=== PATIENT | female | born 2000 | race Hispanic/Latino ===

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

== ENCOUNTER 2020-04-04 20:17 | Emergency (ER) | payer MEDICAID ==
[2020-04-04 21:27] VITALS: BP 123/69
[2020-04-04 21:46] LABS: Basophils % (Auto) 0.4 % (0.0-1.8); Eosinophils % (Auto) 0.7 % (0.0-4.3); Hematocrit 30.7 % (30.3-42.9); Lymphocytes # (Auto) 1.3 K/mm3 (1.2-5.4); Lymphocytes % (Auto) 20.7 % (13.4-35.0); Mean Corpuscular HGB Conc 32 % (30-34); Mean Corpuscular Volume 77 fl (79-97); Monocytes # (Auto) 0.4 K/mm3 (0.0-0.8); Monocytes % (Auto) 6.6 % (0.0-7.3); Platelet Count 240 K/mm3 (140-440); Red Blood Count 3.98 M/mm3 (3.65-5.03); Red Cell Distribution Width 18.6 % (13.2-15.2)
[2020-04-04 22:17] LABS: Alanine Aminotransferase 12 units/L (7-56); Albumin 3.9 g/dL (3.9-5); Blood Urea Nitrogen 9 mg/dL (7-17); Calcium 9.3 mg/dL (8.4-10.2); Hemolysis Index 8
[2020-04-04 22:28] LABS: BUN/Creatinine Ratio 18
[2020-04-04 22:43] LABS: Bacteria,Urine 1+ /HPF (Negative); Bilirubin,Urine NEG (Negative); Blood,Urine NEG (Negative); Color,Urine Yellow (Yellow); Mucus,Urine 3+ /HPF; Protein,Urine <15 mg/dL mg/dL (Negative); Urobilinogen,Urine < 2.0 mg/dL (<2.0)
--- NOTE | 2020-04-04 23:51 | Ultrasound Report ---
ULTRASOUND OBSTETRIC INDICATION / CLINICAL INFORMATION: vaginal bleeding. TECHNIQUE: Transabdominal and Transvaginal. Duplex ultrasound with spectral technique of both ovaries COMPARISON: None available. FINDINGS: GESTATIONAL SAC: Well-defined oval shape and intrauterine in location. YOLK SAC: No significant abnormality. EMBRYO/FETUS: No significant abnormality. - [place]-Rump Length = 4.7 cm = 11 weeks, 3 day(s). - Heart Rate, beats per minute (if present) = 180 ADNEXA: No significant abnormality. Normal color Doppler and spectral waveforms both ovaries FREE FLUID: None. ADDITIONAL FINDINGS: None. IMPRESSION: 1. Single, living intrauterine with estimated sonographic age of 11 weeks, 3 day(s). Signer Name: Michael Cobb MD Signed: 04/04/2020 11:45 PM Workstation Name: [id number]
--- NOTE | 2020-04-04 23:51 | Ultrasound Report ---
ULTRASOUND OBSTETRIC INDICATION / CLINICAL INFORMATION: vaginal bleeding. TECHNIQUE: Transabdominal and Transvaginal. Duplex ultrasound with spectral technique of both ovaries COMPARISON: None available. FINDINGS: GESTATIONAL SAC: Well-defined oval shape and intrauterine in location. YOLK SAC: No significant abnormality. EMBRYO/FETUS: No significant abnormality. - [place]-Rump Length = 4.7 cm = 11 weeks, 3 day(s). - Heart Rate, beats per minute (if present) = 180 ADNEXA: No significant abnormality. Normal color Doppler and spectral waveforms both ovaries FREE FLUID: None. ADDITIONAL FINDINGS: None. IMPRESSION: 1. Single, living intrauterine with estimated sonographic age of 11 weeks, 3 day(s). Signer Name: Michael Cobb MD Signed: 04/04/2020 11:45 PM Workstation Name: [id number]
--- NOTE | 2020-04-05 00:01 | Emergency Department Report ---
ED HPI - General Chief complaint: Vaginal Bleeding Stated complaint: 11 WEEKS PREG ABD PAIN CRAMPING Time Seen by Provider: 04/04/20 22:40 Source: patient Mode of arrival: Ambulatory Limitations: No Limitations - History of Present Illness Initial comments: 19-year-old female patient presents with complaints of vaginal bleeding and lower abdominal cramping in x today. She reports she is 10 weeks and currently following with Dr. Gómez, BASE MANAGER. She states she has had some burning urination for the past 3 days with mild urinary frequency. She denies any vaginal discharge, dyspareunia, hematuria, flank pain, fever/chills/sweats, nausea/vomiting/diarrhea, or constipation. Patient states history of recurrent urinary tract infections during and states her symptoms seem similar to her past UTIs. She denies any current abdominal pain. - Related Data Previous Rx's Medication Instructions Recorded Last Taken Type Ferrous Sulfate 325 mg PO BID #30 tablet. 08/28/17 Unknown Rx HYDROcodone/APAP 5-325 [Rembert 1 each PO Q6HR PRN #20 tablet 08/28/17 Unknown Rx 5/325] Ibuprofen [Motrin] 600 mg PO Q8H PRN #30 tablet 08/28/17 Unknown Rx Amoxicillin/Potassium Clav 1 each PO BID 5 Days #10 tablet 04/04/20 Unknown Rx [Augmentin 875-125 Tablet] Allergies Allergy/AdvReac Type Severity Reaction Status Date / Time No Known Allergies Allergy Unverified 08/26/17 13:42 ED Review of Systems ROS: Stated complaint: 11 WEEKS PREG ABD PAIN CRAMPING Other details as noted in HPI Constitutional: denies: chills, diaphoresis, fever, malaise, weakness Respiratory: denies: shortness of breath Cardiovascular: denies: chest pain Gastrointestinal: abdominal pain. denies: nausea, vomiting, diarrhea, constipation Genitourinary: dysuria, frequency. denies: hematuria, discharge, dyspareunia Skin: denies: rash, lesions Hematological/Lymphatic: denies: swollen glands ED Past Medical Hx - Past Medical History Previous Medical History?: Yes Hx Hypertension: No Hx Congestive Heart Failure: No Hx Diabetes: No Hx Deep Vein Thrombosis: No Hx Renal Disease: No Hx Sickle Cell Disease: No Hx Seizures: No Hx Asthma: No Hx COPD: No Hx HIV: No Additional medical history: Anemia - Surgical History Past Surgical History?: Yes Additional Surgical History: Tonsilectomy - Social History Smoking Status: Current Every Day Smoker Substance Use Type: None - Medications Home Medications: Home Medications Medication Instructions Recorded Confirmed Last Taken Type Ferrous Sulfate 325 mg PO BID #30 tablet. 08/28/17 Unknown Rx HYDROcodone/APAP 5-325 [Rembert 1 each PO Q6HR PRN #20 tablet 08/28/17 Unknown Rx 5/325] Ibuprofen [Motrin] 600 mg PO Q8H PRN #30 tablet 08/28/17 Unknown Rx Amoxicillin/Potassium Clav 1 each PO BID 5 Days #10 tablet 04/04/20 Unknown Rx [Augmentin 875-125 Tablet] ED Physical Exam - General Limitations: No Limitations General appearance: alert, in no apparent distress - Head Head exam: Present: atraumatic, normocephalic - Eye Eye exam: Present: normal appearance. Absent: scleral icterus - ENT ENT exam: Present: mucous membranes moist - Neck Neck exam: Present: normal inspection - Respiratory Respiratory exam: Present: normal lung sounds bilaterally. Absent: respiratory distress - Cardiovascular Cardiovascular Exam: Present: regular rate, normal rhythm. Absent: systolic murmur, diastolic murmur, rubs, gallop - GI/Abdominal GI/Abdominal exam: Present: soft, normal bowel sounds. Absent: distended, tenderness, rebound, rigid - Back Exam Back exam: Absent: CVA tenderness (R), CVA tenderness (L) - Neurological Exam Neurological exam: Present: alert, oriented X3 - Psychiatric Psychiatric exam: Present: normal affect, normal mood - Skin Skin exam: Present: warm, dry, intact, normal color. Absent: rash, cyanosis, diaphoretic ED Course Vital Signs 04/04/20 21:26 Temperature 98.1 F Pulse Rate 85 Respiratory 18 Rate Blood Pressure 123/69 O2 Sat by Pulse 100 Oximetry ED Medical Decision Making - Lab Data Result diagrams: 04/04/20 21:35 04/04/20 21:35 Lab Results 04/04/20 04/04/20 04/04/20 Range/Units 21:27 21:35 21:35 WBC 6.2 (4.5-11.0) K/mm3 RBC 3.98 (3.65-5.03) M/mm3 Hgb 10.0 L (10.1-14.3) gm/dl Hct 30.7 (30.3-42.9) % MCV 77 L (79-97) fl MCH 25 L (28-32) pg MCHC 32 (30-34) % RDW 18.6 H (13.2-15.2) % Plt Count 240 (140-440) K/mm3 Lymph % (Auto) 20.7 (13.4-35.0) % [place] % (Auto) 6.6 (0.0-7.3) % Eos % (Auto) 0.7 (0.0-4.3) % Baso % (Auto) 0.4 (0.0-1.8) % Lymph # (Auto) 1.3 (1.2-5.4) K/mm3 [place] # (Auto) 0.4 (0.0-0.8) K/mm3 Eos # (Auto) 0.0 (0.0-0.4) K/mm3 Baso # (Auto) 0.0 (0.0-0.1) K/mm3 Seg Neutrophils % 71.6 H (40.0-70.0) % Seg Neutrophils # 4.5 (1.8-7.7) K/mm3 Sodium (137-145) mmol/L Potassium (3.6-5.0) mmol/L Chloride (98-107) mmol/L Carbon Dioxide (22-30) mmol/L Anion Gap mmol/L BUN (7-17) mg/dL Creatinine (0.6-1.2) mg/dL Estimated GFR ml/min BUN/Creatinine Ratio % Glucose (65-100) mg/dL Calcium (8.4-10.2) mg/dL Total Bilirubin (0.1-1.2) mg/dL AST (5-40) units/L ALT (7-56) units/L Alkaline Phosphatase (35-129) units/L Total Protein (6.3-8.2) g/dL Albumin (3.9-5) g/dL Albumin/Globulin Ratio % HCG, Quant 67396 H (0-4) mIU/mL Urine Color Yellow (Yellow) Urine Turbidity Cloudy (Clear) Urine pH 5.0 (5.0-7.0) Ur Specific [place] 1.026 (1.003-1.030) Urine Protein <15 mg/dl (Negative) mg/dL Urine Glucose (UA) Neg (Negative) mg/dL Urine Ketones Neg (Negative) mg/dL Urine Blood Neg (Negative) Urine Nitrite Neg (Negative) Urine Bilirubin Neg (Negative) Urine Urobilinogen < 2.0 (<2.0) mg/dL Ur Leukocyte Esterase Mod (Negative) Urine WBC (Auto) 13.0 H (0.0-6.0) /HPF Urine RBC (Auto) 5.0 (0.0-6.0) /HPF U Epithel Cells (Auto) 21.0 H (0-13.0) /HPF Urine Bacteria (Auto) 1+ (Negative) /HPF Urine Mucus 3+ /HPF Blood Type 04/04/20 04/04/20 Range/Units 21:35 21:35 WBC (4.5-11.0) K/mm3 RBC (3.65-5.03) M/mm3 Hgb (10.1-14.3) gm/dl Hct (30.3-42.9) % MCV (79-97) fl MCH (28-32) pg MCHC (30-34) % RDW (13.2-15.2) % Plt Count (140-440) K/mm3 Lymph % (Auto) (13.4-35.0) % [place] % (Auto) (0.0-7.3) % Eos % (Auto) (0.0-4.3) % Baso % (Auto) (0.0-1.8) % Lymph # (Auto) (1.2-5.4) K/mm3 [place] # (Auto) (0.0-0.8) K/mm3 Eos # (Auto) (0.0-0.4) K/mm3 Baso # (Auto) (0.0-0.1) K/mm3 Seg Neutrophils % (40.0-70.0) % Seg Neutrophils # (1.8-7.7) K/mm3 Sodium 136 L (137-145) mmol/L Potassium 3.9 (3.6-5.0) mmol/L Chloride 101.2 (98-107) mmol/L Carbon Dioxide 22 (22-30) mmol/L Anion Gap 17 mmol/L BUN 9 (7-17) mg/dL Creatinine 0.5 L (0.6-1.2) mg/dL Estimated GFR > 60 ml/min BUN/Creatinine Ratio 18 % Glucose 78 (65-100) mg/dL Calcium 9.3 (8.4-10.2) mg/dL Total Bilirubin 0.20 (0.1-1.2) mg/dL AST 12 (5-40) units/L ALT 12 (7-56) units/L Alkaline Phosphatase 53 (35-129) units/L Total Protein 6.2 L (6.3-8.2) g/dL Albumin 3.9 (3.9-5) g/dL Albumin/Globulin Ratio 1.7 % HCG, Quant (0-4) mIU/mL Urine Color (Yellow) Urine Turbidity (Clear) Urine pH (5.0-7.0) Ur Specific [place] (1.003-1.030) Urine Protein (Negative) mg/dL Urine Glucose (UA) (Negative) mg/dL Urine Ketones (Negative) mg/dL Urine Blood (Negative) Urine Nitrite (Negative) Urine Bilirubin (Negative) Urine Urobilinogen (<2.0) mg/dL Ur Leukocyte Esterase (Negative) Urine WBC (Auto) (0.0-6.0) /HPF Urine RBC (Auto) (0.0-6.0) /HPF U Epithel Cells (Auto) (0-13.0) /HPF Urine Bacteria (Auto) (Negative) /HPF Urine Mucus /HPF Blood Type A POSITIVE - Radiology Data Radiology results: report reviewed ULTRASOUND OBSTETRIC INDICATION / CLINICAL INFORMATION: vaginal bleeding. TECHNIQUE: Transabdominal and Transvaginal. Duplex ultrasound with spectral technique of both ovaries COMPARISON: None available. FINDINGS: GESTATIONAL SAC: Well-defined oval shape and intrauterine in location. YOLK SAC: No significant abnormality. EMBRYO/FETUS: No significant abnormality. - [place]-Rump Length = 4.7 cm = 11 weeks, 3 day(s). - Heart Rate, beats per minute (if present) = 180 ADNEXA: No significant abnormality. Normal color Doppler and spectral waveforms both ovaries FREE FLUID: None. ADDITIONAL FINDINGS: None. IMPRESSION: 1. Single, living intrauterine with estimated sonographic age of 11 weeks, 3 day(s). - Medical Decision Making 19-year-old female patient presents with complaints of vaginal bleeding and lower abdominal cramping in x today. She reports she is 10 weeks and currently following with Dr. Gómez, BASE MANAGER. She states she has had some burning urination for the past 3 days with mild urinary frequency. She denies any vaginal discharge, dyspareunia, hematuria, flank pain, fever/chills/sweats, nausea/vomiting/diarrhea, or constipation. Patient states history of recurrent urinary tract infections during and states her symptoms seem similar to her past UTIs. Mild anemia noted on CBC with a hemoglobin of 10. Patient states she is supposed to be taking iron. CMP is normal. UA shows 13 WBCs. Urine culture sent. Will treat for UTI with Augmentin. Ultrasound shows viable 11-week 3-day intrauterine . Recommend follow-up with BASE MANAGER in 2 to 3 days. Her v itals are normal, she is well-appearing, and she is stable for discharge home. Strict return precautions were discussed in detail with patient who verbalizes understanding. Critical care attestation.: If time is entered above; I have spent that time in minutes in the direct care of this critically ill patient, excluding procedure time. ED Disposition Clinical Impression: Bleeding in early UTI in Qualifiers: Trimester: first trimester Qualified Code(s): O23.41 - Unspecified infection of urinary tract in , first trimester Disposition: DC-01 TO HOME OR SELFCARE Is pt being admited?: No Condition: Stable Instructions: Threatened Miscarriage (ED), Urinary Tract Infection in Women (ED) Additional Instructions: Please follow-up with your BASE MANAGER within 2 to 3 days. Prescriptions: Amoxicillin/Potassium Clav [Augmentin 875-125 Tablet] 1 each PO BID 5 Days #10 tablet Forms: Work/School Release Form(ED)
== END 2020-04-05 00:12 | disposition home or self-care (01) ==
LOC: ED 20:17
DX: O23.41 Unspecified infection of urinary tract in pregnancy, first trimester (principal); F17.200 Nicotine dependence, unspecified, uncomplicated; Z90.89 Acquired absence of other organs; Z79.1 Long term (current) use of non-steroidal anti-inflammatories (NSAID); Z79.2 Long term (current) use of antibiotics; Z79.899 Other long term (current) drug therapy; Z3A.11 11 weeks gestation of pregnancy
CPT/HCPCS: 36415; 76801; 76802; 76817; 80053; 81001; 84702; 85025; 86900; 86901; 87086

== ENCOUNTER 2020-04-09 20:57 | Emergency (ER) | payer MEDICAID ==
[2020-04-09 23:05] VITALS: BP 114/62
[2020-04-10 00:37] LABS: Basophils % (Auto) 0.3 % (0.0-1.8); Eosinophils % (Auto) 0.9 % (0.0-4.3); Hematocrit 31.6 % (30.3-42.9); Lymphocytes # (Auto) 1.4 K/mm3 (1.2-5.4); Lymphocytes % (Auto) 25.5 % (13.4-35.0); Mean Corpuscular HGB Conc 32 % (30-34); Mean Corpuscular Volume 78 fl (79-97); Monocytes # (Auto) 0.3 K/mm3 (0.0-0.8); Monocytes % (Auto) 5.3 % (0.0-7.3); Platelet Count 223 K/mm3 (140-440); Red Blood Count 4.03 M/mm3 (3.65-5.03)
[2020-04-10 00:58] LABS: Blood Urea Nitrogen 9 mg/dL (7-17); Calcium 9.1 mg/dL (8.4-10.2); Hemolysis Index 0
[2020-04-10 01:11] LABS: BUN/Creatinine Ratio 18
== END 2020-04-10 00:35 | disposition left against medical advice (07) ==
LOC: ED 20:57
DX: O21.8 Other vomiting complicating pregnancy (principal); Z3A.11 11 weeks gestation of pregnancy; Z53.21 Procedure and treatment not carried out due to patient leaving prior to being seen by health care provider
CPT/HCPCS: 36415; 80048; 84702; 85025

== ENCOUNTER 2020-12-25 13:39 | Emergency (ER) | payer MEDICAID ==
--- NOTE | 2020-12-25 14:35 | Emergency Department Report ---
Chief Complaint: Medical Clearance Stated Complaint: OVERDOSE Time Seen by Provider: 12/25/20 14:31 - HPI History of Present Illness: 20-year-old female patient with history of heroin use presents to the emergency department via EMS status post accidental overdose. Patient was reportedly injecting heroin at home when her [id number]-sd-azy called 911. Patient is able to recall the events surrounding EMS arrival in entirety. EMS reported to assembly machine set up mechanic that patient was apneic on arrival however Narcan was never administered. Patient states she has been breathing on her own since EMS arrived and did not want to come to the hospital. However, a police liaison officer was present, and patient was told that if she did not come to the hospital, she would be incarcerated. Patient reluctantly agreed to be brought to the hospital. Patient remained awake and alert en route to the emergency department. She is currently asymptomatic and politely asking to be discharged home. No further complaints. - ROS Review of Systems: GENERAL: Negative for fever. CARDIOVASCULAR: Negative for chest pain. PULMONARY: Negative for shortness of breath. GASTROINTESTINAL: Negative for abdominal pain. MUSCULOSKELETAL: Negative for back pain. NEUROLOGICAL: Negative for headache. INTEGUMENTARY: Negative for rash. - Exam Vital Signs: Vital Signs 12/25/20 14:00 Temperature 97 F L Pulse Rate 104 H Respiratory 16 Rate Blood Pressure 122/80 [Right] O2 Sat by Pulse 97 Oximetry Physical Exam: General: Awake and alert. No acute distress. Head: Atraumatic, normocephalic. Eyes: EOMI. Pupils are equal and round, reactive to light, no nystagmus. Normal sclera and conjunctiva. ENT: Oral mucosa is moist. Normal pharyngeal exam. Neck: Supple. No lymphadenopathy. Pulmonary: No respiratory distress. Clear to auscultation bilaterally. Cardiac: Regular rate and rhythm. Pulses are palpable and equal bilaterally. No lower extremity cyanosis or edema. Skin: Several ecchymotic areas noted to the left upper extremity; patient admits these are from recent IV drug use. Abdomen: Soft, non-tender, non-protuberant. No guarding, rigidity, or rebound. Bowel sounds are normal. No organomegaly or masses noted. Back: Normal alignment. No CVA tenderness. Extremities: Symmetrical. Full range of motion intact. Neurological: Alert and oriented, appropriately interactive, no focal deficits. Psych: Cooperative. Appropriate mood and affect. Speech is evenly metered. Thoughts are logically construed. MSE screening note: Focused history and physical exam performed. Due to findings the following was ordered: ED Medical Decision Making - Medical Decision Making Patient presents to the emergency department via EMS for evaluation after heroin use. She is afebrile, hemodynamically stable, neurologically intact, ambulatory without assistance, no hypoxia, no respiratory distress. She does not appear acutely intoxicated. She is alert and oriented to person, place, time, and situation. She is able to recall the events surrounding her earlier drug use in entirety. She is currently asymptomatic and has no complaints. Patient admits she agreed to be transported to the emergency department in order to evade incarceration. States she does not wish to remain in the emergency department for continued observation and/or further diagnostic work-up. Patient will be discharged home to follow-up with primary care provider. Emphasized the importance of refraining from substance abuse. Referred to local rehabilitation programs. Patient expressed understanding and is agreeable to plan of care. Strict return precautions provided. Case discussed with Dr. Green, attending emergency physician, who agrees with plan of care. Repeat exam is unremarkable and benign. History, exam, diagnostic testing, and current condition do not suggest worrisome pathology to warrant further testing, continued ED treatment, admission, or surgical evaluation at this point. Given the low probability of a significant medical illness, it would be more likely to result in harm than benefit to perform further testing at this stage. Discussed findings, presumptive diagnosis, need for follow-up and specific signs/symptoms that should prompt immediate return to the emergency department. Instructions were explained in detail to the patient in addition to giving written discharge information. Patient expressed understanding and was given the opportunity to ask questions, all of which were satisfactorily answered prior to discharge home. ED Disposition for MSE Clinical Impression: History of heroin use Disposition: Z-07 MED SCREENING EXAM-LEFT Is pt being admited?: No Does the pt Need Aspirin: No Condition: Stable Instructions: Substance Use Disorder Additional Instructions: Please discontinue drug use. See referral information below. Follow-up with primary care provider this week. Call today to schedule an appointment. Return to the emergency department immediately for new or worsening symptoms. [facility] - [facility]-5 Days [facility] [Provider Group] - 3-5 Days [facility] [Provider Group] - 3-5 Days Time of Disposition: 14:37
[2020-12-25 15:16] VITALS: BP 111/72
== END 2020-12-25 15:16 | disposition left against medical advice (07) ==
LOC: ED 13:39
DX: T40.1X1A Poisoning by heroin, accidental (unintentional), initial encounter (principal); Z53.21 Procedure and treatment not carried out due to patient leaving prior to being seen by health care provider; Y92.89 Other specified places as the place of occurrence of the external cause

== ENCOUNTER 2021-03-05 16:56 | Emergency (ER) | payer MEDICAID ==
[2021-03-05 17:15] VITALS: BP 106/55
[2021-03-05 18:10] LABS: Basophils % (Auto) 0.1 % (0.0-1.8); Eosinophils # (Auto) 0.2 K/mm3 (0.0-0.4); Eosinophils % (Auto) 1.8 % (0.0-4.3); Hemoglobin 10.7 gm/dl (10.1-14.3); Lymphocytes # (Auto) 1.1 K/mm3 (1.2-5.4); Lymphocytes % (Auto) 12.4 % (13.4-35.0); Mean Corpuscular HGB Conc 31 % (30-34); Mean Corpuscular Volume 76 fl (79-97); Monocytes # (Auto) 0.1 K/mm3 (0.0-0.8); Monocytes % (Auto) 1.1 % (0.0-7.3); Platelet Count 293 K/mm3 (140-440); Red Blood Count 4.63 M/mm3 (3.65-5.03); Red Cell Distribution Width 18.8 % (13.2-15.2)
[2021-03-05 18:32] LABS: Blood Urea Nitrogen 8 mg/dL (7-17); Calcium 9.1 mg/dL (8.4-10.2); Hemolysis Index 13
[2021-03-05 18:36] LABS: BUN/Creatinine Ratio 11
[2021-03-05 19:21] LABS: HCG Qualitative,Urine Negative (Negative)
--- NOTE | 2021-03-05 19:22 | Emergency Department Report ---
ED Medical Clearance HPI - General Chief complaint: Medical Clearance Stated complaint: [facility] Time Seen by Provider: 03/05/21 18:50 Source: patient Mode of arrival: Ambulatory - History of Present Illness Initial comments: Patient is a 20-year-old female presents emergency room with complaints of needing medical clearance for drug rehab. She reports that she has been in contact with [facility] and states that she just needs clearance. She has no physical complaints at this time. She states that she uses heroin and fentanyl. She denies any alcohol use. She denies any SI, HI, hallucinations. Past medical history of anemia. No allergies to medications. Last menstrual cycle ended last month. Home medications: Previous Rx's Medication Instructions Recorded Last Taken Type Ferrous Sulfate 325 mg PO BID #30 tablet. 08/28/17 Unknown Rx HYDROcodone/APAP 5-325 [Romance 1 each PO Q6HR PRN #20 tablet 08/28/17 Unknown Rx 5/325] Ibuprofen [Motrin] 600 mg PO Q8H PRN #30 tablet 08/28/17 Unknown Rx Amoxicillin/Potassium Clav 1 each PO BID 5 Days #10 tablet 04/04/20 Unknown Rx [Augmentin 875-125 Tablet] Allergies/Adverse reactions: Allergies Allergy/AdvReac Type Severity Reaction Status Date / Time No Known Allergies Allergy Verified 03/05/21 17:12 ED Review of Systems ROS: Stated complaint: [facility] Other details as noted in HPI Comment: All other systems reviewed and negative ED Past Medical Hx - Past Medical History Hx Hypertension: No Hx Congestive Heart Failure: No Hx Diabetes: No Hx Deep Vein Thrombosis: No Hx Renal Disease: No Hx Sickle Cell Disease: No Hx Seizures: No Hx Asthma: No Hx COPD: No Hx HIV: No Additional medical history: Anemia - Surgical History Additional Surgical History: Tonsilectomy - Social History Smoking Status: Never Smoker Substance Use Type: Heroin - Medications Home Medications: Home Medications Medication Instructions Recorded Confirmed Last Taken Type Ferrous Sulfate 325 mg PO BID #30 tablet. 08/28/17 Unknown Rx HYDROcodone/APAP 5-325 [Romance 1 each PO Q6HR PRN #20 tablet 08/28/17 Unknown Rx 5/325] Ibuprofen [Motrin] 600 mg PO Q8H PRN #30 tablet 08/28/17 Unknown Rx Amoxicillin/Potassium Clav 1 each PO BID 5 Days #10 tablet 04/04/20 Unknown Rx [Augmentin 875-125 Tablet] ED Physical Exam - General Limitations: No Limitations General appearance: alert, in no apparent distress - Head Head exam: Present: atraumatic, normocephalic - Eye Eye exam: Present: normal appearance - ENT ENT exam: Present: mucous membranes moist - Respiratory Respiratory exam: Present: normal lung sounds bilaterally. Absent: respiratory distress, wheezes, rales, rhonchi, stridor, chest wall tenderness, accessory muscle use, decreased breath sounds, prolonged expiratory - Cardiovascular Cardiovascular Exam: Present: regular rate, normal rhythm, normal heart sounds. Absent: systolic murmur, diastolic murmur, rubs, gallop - Neurological Exam Neurological exam: Present: alert, oriented X3 - Psychiatric Psychiatric exam: Present: normal affect, normal mood - Skin Skin exam: Present: warm, dry, intact ED Course Vital Signs 03/05/21 17:10 Temperature 98.2 F Pulse Rate 96 H Respiratory 18 Rate Blood Pressure 106/55 O2 Sat by Pulse 100 Oximetry ED Medical Decision Making - Lab Data Result diagrams: 03/05/21 17:40 03/05/21 17:40 - Medical Decision Making Patient is a 20-year-old female presents emergency room with complaints of needing medical clearance for drug rehab. She reports that she has been in contact with [facility] and states that she just needs clearance. She has no physical complaints at this time. She states that she uses heroin and fentanyl. She denies any alcohol use. She denies any SI, HI, hallucinations. Past medical history of anemia. No allergies to medications. Last menstrual cycle ended last month. Vitals are stable. No abnormality on physical examination as documented in chart. Labs are stable. UA shows many epithelial cells, likely due to contamination, patient is not complaining of urinary symptoms at this time, the up-to-date medical literature does not recommend treating asymptomatic bacteria and this could be due to contamination, urine culture was sent. UDS is positive for opiates. Patient has no clinical signs of acute psychosis. She has no clinical signs of withdrawal. She denies any HI or SI. Advised patient Please follow-up with your primary care doctor. Return to emergency room for any new or worsening symptoms. There is no medical condition present at this time hindering rehab treatment, you are medically clear ED Disposition Clinical Impression: Opioid abuse Disposition: HOME / SELF CARE / HOMELESS Is pt being admited?: No Does the pt Need Aspirin: No Condition: Stable Instructions: Opioid Use Disorder Additional Instructions: Please follow-up with your primary care doctor. Return to emergency room for any new or worsening symptoms. There is no medical condition present at this time hindering rehab treatment, you are medically clear Referrals: MIL MARSH MD [Primary Care Provider] - 2-3 Days Time of Disposition: 20:12 Print Language: TELUGU
[2021-03-05 19:30] LABS: Amphetamine Screen,Urine Negative; Benzodiazepines Screen,Urine Negative; Cannabinoid Screen,Urine Negative; Cocaine Screen,Urine Negative; Methadone Screen,Urine Negative
[2021-03-05 19:32] LABS: Bacteria,Urine 2+ /HPF (Negative); Bilirubin,Urine SM (Negative); Blood,Urine NEG (Negative); Color,Urine Amber (Yellow); Mucus,Urine 3+ /HPF
[2021-03-05 19:43] LABS: Opiate Screen,Urine Positive
[2021-03-05 19:57] LABS: Ictotest,Urine Negative (Negative)
== END 2021-03-05 20:18 | disposition home or self-care (01) ==
LOC: ED 16:56
DX: F11.10 Opioid abuse, uncomplicated (principal); D64.9 Anemia, unspecified; Z98.890 Other specified postprocedural states
CPT/HCPCS: 36415; 80048; 80307; 80320; 81001; 81025; 85025; 87076; 87086; 87186; 99283; G0480

== ENCOUNTER 2021-09-18 22:27 | Emergency (ER) | payer MEDICAID ==
[2021-09-19 00:21] VITALS: BP 121/64
== END 2021-09-19 11:06 | disposition left against medical advice (07) ==
LOC: ED 22:27
DX: F10.231 Alcohol dependence with withdrawal delirium (principal); Z53.21 Procedure and treatment not carried out due to patient leaving prior to being seen by health care provider